=== PATIENT | female | born 1950 | race Caucasian/White ===

== ENCOUNTER → 2018-08-01 | Outpatient (CLI) | payer OTHER ==
[~2018-08-01] MED LIST: LIDOCAINE 1%, 20ML ONE; LIDOCAINE 1%-EPI 1:100K, 20ML ONE
== END | disposition home or self-care (01) ==
LOC: CFH 10:21
PROVIDERS: ATTEND Family Medicine
DX: N63.10 Unspecified lump in the right breast, unspecified quadrant (principal); N64.9 Disorder of breast, unspecified
CPT/HCPCS: 19083; 77065; 88305; J3490

== ENCOUNTER → 2018-08-29 | Outpatient (CLI) | payer OTHER ==
[~2018-08-29] MED LIST changes: +ASPI81TA45 PO; +CHLO25TA PO; +ESCI10TA PO; +LEVO88TA2 PO; +OLME40TA12 PO; +POTA10TA31 PO; +SODIUM BICARBONATE 4.0%, 5ML ONE; +VERA180T6 PO
== END | disposition home or self-care (01) ==
LOC: CFH 08:08
PROVIDERS: ATTEND Surgery
DX: N60.31 Fibrosclerosis of right breast (principal); I10 Essential (primary) hypertension; E03.9 Hypothyroidism, unspecified; Z98.890 Other specified postprocedural states; Z85.3 Personal history of malignant neoplasm of breast; Z79.82 Long term (current) use of aspirin; Z72.89 Other problems related to lifestyle
CPT/HCPCS: 19281; 19301; J3490

== ENCOUNTER 2018-09-01 06:15 | Day surgery (SDC) | payer OTHER ==
[2018-08-26 10:24] VITALS: BP 165/87
[~2018-09-01] VITALS: Ht 167.6 cm; Wt 80.0 kg
[~2018-09-01 06:15] MED LIST changes: -LIDOCAINE 1%, 20ML ONE; -LIDOCAINE 1%-EPI 1:100K, 20ML ONE; -SODIUM BICARBONATE 4.0%, 5ML ONE
[2018-09-01] MEDS ORDERED: MIDAZOLAM 1 MG/ML, 2ML ONE (06:39)
[2018-09-01] MEDS ORDERED: PROPOFOL 10 MG/ML, 20ML ONE (06:40)
[2018-09-01] MEDS ORDERED: FENTANYL PF 250 MCG/5ML ONE (06:40)
[2018-09-01] MEDS ORDERED: SODIUM CHLORIDE 0.9% PF 10ML ONE (06:42)
[2018-09-01] MEDS ORDERED: CEFAZOLIN 1,000 MG ONE ×2 (06:42)
[2018-09-01] MEDS ORDERED: DEXAMETHASONE 4 MG/ML, 1ML ONE ×2 (06:43)
[2018-09-01] MEDS ORDERED: ONDANSETRON 2MG/ML, 2ML ONE (06:43)
[2018-09-01] MEDS ORDERED: LACTATED RINGERS 1,000 ML IV SCH (06:49)
[2018-09-01 06:51] VITALS: BP 165/87
[2018-09-01] MEDS ORDERED: BUPIVACAINE/EPI 0.5% 1:200K ONE (06:55)
[2018-09-01] MEDS ORDERED: FENTANYL PF 100 MCG/2ML IV PRN (07:00)
[2018-09-01] MEDS ORDERED: ONDANSETRON 2MG/ML, 2ML IV PRN (07:00)
[2018-09-01] MEDS ORDERED: hydrALAzine 20 MG/ML, 1ML IV PRN (07:00)
[2018-09-01] MEDS ORDERED: MEPERIDINE/PF 25MG/0.5ML IVPush PRN (07:00)
[2018-09-01] MEDS ORDERED: HALOPERIDOL 5 MG/ML IV PRN (07:00)
[2018-09-01] MEDS ORDERED: LABETALOL 5MG/ML, 20ML IV PRN (07:00)
[2018-09-01] MEDS ORDERED: ONDANSETRON ODT 8 MG PO PRN (07:00)
[2018-09-01] MEDS ORDERED: PROMETHAZINE 12.5 MG SUPP PR PRN (07:00)
[2018-09-01] MEDS ORDERED: PROMETHAZINE 25 MG/ML, 1ML IM PRN ×2 (07:00)
[2018-09-01] MEDS ORDERED: OXYcodone 5 MG/5 ML ORAL.SOL UDC PO PRN (07:00)
[2018-09-01] MEDS ORDERED: PROMETHAZINE 25 MG SUPP PR PRN (07:00)
[2018-09-01] MEDS ORDERED: MORPHINE SULFATE 4 MG/ML, 1ML IVPush PRN (07:00)
[2018-09-01] MEDS ORDERED: ACETAMINOPHEN 325 MG TABLET PO PRN (07:00)
[2018-09-01] MEDS ORDERED: HYDROmorphone 2 MG/ML, 1ML IVPush PRN (07:00)
[2018-09-01] MEDS ORDERED: PROMETHAZINE 25 MG/ML, 1ML IV PRN (07:00)
[2018-09-01] MEDS ORDERED: PHENYLEPHRINE 10 MG/ML ONE (07:20)
[2018-09-01] MEDS ORDERED: ACETAMINOPHEN 650 MG/20.3 ML UDC ONE (08:22)
[2018-09-01] MEDS ORDERED: OXYcodone 5 MG/5 ML ORAL.SOL UDC ONE (08:22)
== END 2018-09-01 11:35 | disposition home or self-care (01) ==
LOC: OUT 06:15
PROVIDERS: ATTEND Surgery
DX: N60.31 Fibrosclerosis of right breast (principal); I10 Essential (primary) hypertension; E03.9 Hypothyroidism, unspecified; F32.9 Major depressive disorder, single episode, unspecified; Z98.890 Other specified postprocedural states; Z85.3 Personal history of malignant neoplasm of breast; Z79.82 Long term (current) use of aspirin; Z72.89 Other problems related to lifestyle
CPT/HCPCS: 19301; 88305; J0690; J1100; J2250; J2370; J2405; J2704; J3010; J7120